=== PATIENT | female | born 1950 | race Caucasian/White ===

== ENCOUNTER 2018-06-23 09:11 | Outpatient (CLI) | payer OTHER ==
[2018-06-23] MEDS ORDERED: GADOPENTETATE DIMEGLUMINE 15 ML VIAL IV ONE (09:28)
== END 2018-06-23 21:42 | disposition home or self-care (01) ==
LOC: SMI 09:11
DX: I63.9 Cerebral infarction, unspecified (principal); R07.9 Chest pain, unspecified; R13.19 Other dysphagia
CPT/HCPCS: 70553; A9579